=== PATIENT | male | born 1935 | race Caucasian/White ===

== ENCOUNTER → 2019-10-02 | Outpatient (CLI) | payer OTHER, MEDICARE | LOC: SJCVCIMAG 10:06 | DX: I71.4 Abdominal aortic aneurysm, without rupture (principal); I72.3 Aneurysm of iliac artery; I10 Essential (primary) hypertension; I25.10 Atherosclerotic heart disease of native coronary artery without angina pectoris; E78.00 Pure hypercholesterolemia, unspecified; I38 Endocarditis, valve unspecified; D68.59 Other primary thrombophilia; I48.92 Unspecified atrial flutter ==

== ENCOUNTER → 2020-01-29 | Outpatient (CLI) | payer OTHER, MEDICARE | LOC: SJCVCIMAG 09:44 | DX: I08.2 Rheumatic disorders of both aortic and tricuspid valves (principal); I48.92 Unspecified atrial flutter; I25.810 Atherosclerosis of coronary artery bypass graft(s) without angina pectoris; I10 Essential (primary) hypertension; E78.5 Hyperlipidemia, unspecified; Z95.1 Presence of aortocoronary bypass graft ==

== ENCOUNTER → 2020-04-21 | Outpatient (CLI) | payer OTHER, MEDICARE | LOC: SJCVC 13:16 | PROVIDERS: ATTEND Internal Medicine Cardiovascular Disease | DX: R94.31 Abnormal electrocardiogram [ECG] [EKG] (principal); I44.39 Other atrioventricular block; I48.92 Unspecified atrial flutter; I25.10 Atherosclerotic heart disease of native coronary artery without angina pectoris; I10 Essential (primary) hypertension; E78.00 Pure hypercholesterolemia, unspecified; I71.4 Abdominal aortic aneurysm, without rupture; I72.3 Aneurysm of iliac artery; Z79.899 Other long term (current) drug therapy ==

== ENCOUNTER → 2020-11-19 | Outpatient (CLI) | payer OTHER, MEDICARE | LOC: SJCVC 13:42 | PROVIDERS: ATTEND Internal Medicine Cardiovascular Disease | DX: R94.31 Abnormal electrocardiogram [ECG] [EKG] (principal); I45.10 Unspecified right bundle-branch block; I25.810 Atherosclerosis of coronary artery bypass graft(s) without angina pectoris; I10 Essential (primary) hypertension; E78.00 Pure hypercholesterolemia, unspecified; I71.4 Abdominal aortic aneurysm, without rupture; I65.23 Occlusion and stenosis of bilateral carotid arteries; D68.59 Other primary thrombophilia; Z98.890 Other specified postprocedural states; Z95.1 Presence of aortocoronary bypass graft; Z88.8 Allergy status to other drugs, medicaments and biological substances; Z79.82 Long term (current) use of aspirin; Z79.899 Other long term (current) drug therapy; Z82.49 Family history of ischemic heart disease and other diseases of the circulatory system ==

== ENCOUNTER → 2021-07-09 | Outpatient (CLI) | payer OTHER, MEDICARE | LOC: SJCVCIMAG 07:50 | PROVIDERS: ATTEND Internal Medicine Cardiovascular Disease | DX: R94.31 Abnormal electrocardiogram [ECG] [EKG] (principal); I08.3 Combined rheumatic disorders of mitral, aortic and tricuspid valves; I72.3 Aneurysm of iliac artery; I72.2 Aneurysm of renal artery; I71.4 Abdominal aortic aneurysm, without rupture; I25.810 Atherosclerosis of coronary artery bypass graft(s) without angina pectoris; I10 Essential (primary) hypertension; E78.00 Pure hypercholesterolemia, unspecified; D68.59 Other primary thrombophilia; I65.23 Occlusion and stenosis of bilateral carotid arteries; I48.92 Unspecified atrial flutter; Z95.1 Presence of aortocoronary bypass graft; Z79.899 Other long term (current) drug therapy; Z91.013 Allergy to seafood; Z88.8 Allergy status to other drugs, medicaments and biological substances ==